=== PATIENT | female | born 1970 | race Caucasian/White ===

== ENCOUNTER → 2021-01-17 | Outpatient (CLI) | payer BC ==
[2016-06-03 14:15] VITALS: BP 114/59
[~2021-01-17] MED LIST: AZIT250T PO; HYDR-3164 PO; PRED50TA PO
--- NOTE | 2021-01-17 16:10 | KCIC ---
EXAM: XR BILATERAL HIP (WITH OR WITHOUT PELVIS) LEFT 2 VIEWS 01/17/2021 10:18 AM CLINICAL INDICATION: Left hip pain COMPARISON: None TECHNIQUE: AP view the pelvis and AP and frog-leg lateral view of the left hip FINDINGS: No acute fracture. Alignment is normal. No significant joint space narrowing or significan t degenerative changes of the hips. Pubic symphysis and sacral joints are normal IMPRESSION: No acute osseous abnormality or significant degenerative joint disease. Electronically signed by: Rebeca Junior MD (01/17/2021 4:08 PM) [id number]
== END ==
LOC: KCIC 10:15
PROVIDERS: ATTEND Family Medicine
DX: M25.552 Pain in left hip (principal)
CPT/HCPCS: 73502